=== PATIENT | female | born 1985 | race Caucasian/White ===

== ENCOUNTER 2019-09-25 16:30 | Emergency (ER) | payer SELFPAY ==
[~2019-09-25] VITALS: Ht 167.6 cm; Wt 61.2 kg
[2019-09-25 16:41] VITALS: BP 145/77
--- NOTE | 2019-09-25 16:53 | NUR ---
34 Y/O M C/C SORE THROAT X1 DAY. PT PRESENTS IN NO RESPIRATORY DISTRESS, VSS, EUPNIC, A/OX4. PER PT, TESTED POSITIVE TODAY. PT NKA. NO HX. NO RX. NO NVD. PT IN TENT
--- NOTE | 2019-09-25 16:54 | NUR ---
ER-PA AT TENT
--- NOTE | 2019-09-25 17:44 | NUR ---
COVID SWAB COMPLETE ; GIVEN TO LAB
[2019-09-25 17:59] VITALS: BP 135/72
--- NOTE | 2019-09-25 17:59 | NUR ---
Patient discharged with v/s stable. Written and verbal after care instructions given and explained. Patient alert, oriented and verbalized understanding of instructions. Ambulatory with steady gait. All questions addressed prior to discharge. ID band removed. Patient advised to follow up with PMD. Rx of ACETAMINOPHEN,PROMETHAZINE given. Patient educated on indication of medication including possible reaction and side effects. Opportunity to ask questions provided and answered.
--- NOTE | 2019-09-29 13:01 | NUR ---
RECEIVED FROM LAB POSITIVE COVID-19 RESULTS. COPY OF RESULTS GIVEN TO INFECTION CONTROL
== END 2019-09-25 17:59 | disposition home or self-care (01) ==
LOC: MED 16:30
DX: B34.9 Viral infection, unspecified (principal); Z20.828 Contact with and (suspected) exposure to other viral communicable diseases; R03.0 Elevated blood-pressure reading, without diagnosis of hypertension
CPT/HCPCS: 99283; U0003

== ENCOUNTER 2021-10-22 16:29 | Emergency (ER) | payer MEDICAID, OTHER ==
[~2021-10-22] VITALS: Ht 154.9 cm; Wt 66.2 kg
[2021-10-22 16:38] VITALS: BP 158/103
--- NOTE | 2021-10-22 16:41 | NUR ---
ambulated to bed 11
--- NOTE | 2021-10-22 16:54 | NUR ---
36 Y/O FEMALE BIB SELF C/O BILATERAL MID ABDOMINAL PAIN RADIATING TO THE PELVIS AND NAUSEA X1 HOUR, REPORTS TAKING TYLENOL WITH NO RELIEF. DENIES V/D OR URINARY SYMPTOMS. DENIES FEVER, RUIZ PMH: DENIES NKA
--- NOTE | 2021-10-22 17:00 | NUR ---
DR SEALS AT BEDSIDE FOR EVAL
[2021-10-22] MEDS ORDERED: NACL 0.9% 1,000 ML IV SCH (17:05)
[2021-10-22] MEDS ORDERED: KETOROLAC 30 MG/ML VIAL IVP ONE ×2 (17:05→22:20)
[2021-10-22] MEDS ORDERED: ONDANSETRON 4 MG/2 ML VIAL IVP ONE (17:05)
[2021-10-22 17:14] LABS: APPEARANCE,URINE CLEAR (CLEAR); BILIRUBIN,URINE NEGATIVE (NEGATIVE); BLOOD, URINE NEGATIVE (NEGATIVE); COLOR,URINE YELLOW (YELLOW); LEUKOCYTE ESTERASE ,URINE NEGATIVE (NEGATIVE); NITRITE, URINE NEGATIVE (NEGATIVE); PH,URINE 6.5 (5.0-9.0); UGLUCOSE NEGATIVE (NEGATIVE)
[2021-10-22 17:24] LABS: BASOPHILS % (AUTO) 0.1 % (0.0-2.0); EOSINOPHILS # (AUTO) 0.2 K/uL (0-0.4); EOSINOPHILS % (AUTO) 1.4 % (0.0-4.0); HEMATOCRIT 28.9 % (36-48); HEMOGLOBIN 8.9 g/dL (12.0-16.0); LYMPHOCYTES # (AUTO) 0.8 K/uL (2.5-16.5); LYMPHOCYTES % (AUTO) 5.5 % (20.5-51.1); MEAN CORPUSCULAR HEMOGLOBIN 20 pg (27-31); MEAN CORPUSCULAR HGB CONC 31 g/dL (33-37); MEAN CORPUSCULAR VOLUME 66.6 fL (80-94); MONOCYTES # (AUTO) 0.6 K/uL (0.8-1.0); MONOCYTES % (AUTO) 3.8 % (1.7-9.3); NEUTROPHILS % (AUTO) 89.2 % (42.2-75.2); PLATELET COUNT (AUTO) 371 K/uL (140-450); RED BLOOD CELL COUNT(AUTO) 4.35 MIL/uL (4.20-5.40); WHITE BLOOD COUNT (AUTO) 14.6 K/uL (4.8-10.8)
--- NOTE | 2021-10-22 17:38 | NUR ---
PT AMBULATED TO THE BATHROOM
[2021-10-22 17:41] LABS: ALBUMIN 3.9 g/dL (3.4-5.0); ANION GAP 13.9 (8-16); CARBON DIOXIDE 21.1 mmol/L (21-32); CREATININE 0.8 mg/dL (0.6-1.3); TOTAL BILIRUBIN 0.5 mg/dL (0.0-1.0)
[2021-10-22] MEDS ORDERED: MORPHINE SULFATE 4 MG/ML SYR IVP ONE (17:45)
[2021-10-22] MEDS ORDERED: IBUP-2213 PO (18:01)
[2021-10-22] MEDS ORDERED: FLUC150T PO (18:01)
[2021-10-22] MEDS ORDERED: ONDA8TAB87 PO (18:01)
[2021-10-22] MEDS ORDERED: ACET-8386 PO (18:01)
--- NOTE | 2021-10-22 18:44 | NUR ---
PT CONTINUED WITH PAIN, ERMD MADE AWARE
--- NOTE | 2021-10-22 19:33 | NUR ---
Pt report given to ISIAH RN. Transfer of care at this time.
--- NOTE | 2021-10-22 20:09 | NUR ---
pt taken to CT via w/c
[2021-10-22] MEDS ORDERED: NACL 0.9% 1,000 ML IV ONE (22:20)
--- NOTE | 2021-10-22 22:23 | NUR ---
PATIENT BP DROPPED 55/35 AND REPEAT OF 57/36 ER MD MADE AWARE. ORDER OF BOLUS AND TO MONITOR PATIENT BP.
[2021-10-22] MEDS ORDERED: PIPERACILLIN/TAZOBACTAM 3.375 GM in DEXTROSE 5% 50 ML IV ONE (22:25)
[2021-10-22] MEDS ORDERED: PIPERACILLIN/TAZOBACTAM 3.375 GM VIAL IV ONE (22:31)
[2021-10-22 22:39] VITALS: BP 129/91
--- NOTE | 2021-10-23 02:19 | NUR ---
Patient discharged. Written and verbal after care instructions given and explained Nausea, vomiting, & abdominal pain. Patient alert, oriented and verbalized understanding of instructions. Ambulatory with steady gait. All questions addressed prior to discharge. ID band removed. Patient advised to follow up with PMD. Rx of Zofran ODT, Ibuprofen, Diflucan, Hydrocodon-Acetaminophen 5-325 given. Patient educated on indication of medication including possible reaction and side effects. Opportunity to ask questions provided and answered.
--- NOTE | 2021-10-24 18:28 | NUR ---
LATE ENTRY. 0.9% NS DISCONTINED 10/23/21 AT 0219.
== END 2021-10-23 02:19 | disposition home or self-care (01) ==
LOC: MED 16:29
DX: N83.202 Unspecified ovarian cyst, left side (principal); N83.201 Unspecified ovarian cyst, right side
CPT/HCPCS: 36415; 74177; 76705; 76830; 80053; 81003; 81025; 83605; 83690; 85025; 87040; 96361; 96365; 96375; 96376; 99285; J1885; J2270; J2405; J2543; Q0092; Q9967; J7030

== ENCOUNTER 2021-10-25 22:48 | Emergency (ER) | payer MEDICAID ==
[~2021-10-25] VITALS: Ht 154.9 cm; Wt 66.2 kg
[~2021-10-25 22:48] MED LIST: ACET-8386 PO; FLUC150T PO; IBUP-2213 PO; ONDA8TAB87 PO
[2021-10-25 22:58] VITALS: BP 138/80
[2021-10-25] MEDS ORDERED: NACL 0.9% 2,000 ML IV ONE (23:20)
[2021-10-25] MEDS ORDERED: ONDANSETRON 4 MG/2 ML VIAL IVP ONE (23:20)
[2021-10-25] MEDS ORDERED: MORPHINE SULFATE 2 MG/ML SYR IVP ONE (23:20)
[2021-10-25] MEDS ORDERED: cefTRIAXone 1,000 MG VIAL ONE (23:42)
[2021-10-25 23:55] LABS: BASOPHILS # (AUTO) 0.1 K/uL (0.00-0.22); BASOPHILS % (AUTO) 0.6 % (0.0-2.0); EOSINOPHILS # (AUTO) 0.3 K/uL (0-0.4); EOSINOPHILS % (AUTO) 2.7 % (0.0-4.0); HEMATOCRIT 30.3 % (36-48); HEMOGLOBIN 9.3 g/dL (12.0-16.0); LYMPHOCYTES % (AUTO) 42.2 % (20.5-51.1); MEAN CORPUSCULAR HEMOGLOBIN 21 pg (27-31); MEAN CORPUSCULAR HGB CONC 31 g/dL (33-37); MONOCYTES # (AUTO) 0.7 K/uL (0.8-1.0); MONOCYTES % (AUTO) 7.4 % (1.7-9.3); NEUTROPHILS # (AUTO) 4.5 K/uL (1.8-7.7); NEUTROPHILS % (AUTO) 47.1 % (42.2-75.2); PLATELET COUNT (AUTO) 423 K/uL (140-450); RED BLOOD CELL COUNT(AUTO) 4.52 MIL/uL (4.20-5.40); RED CELL DISTRIBUTION WIDTH 17.9 % (11.6-13.7); WHITE BLOOD COUNT (AUTO) 9.5 K/uL (4.8-10.8)
[2021-10-26 00:44] LABS: ANION GAP 14.4 (8-16); CARBON DIOXIDE 25.1 mmol/L (21-32); CREATININE 0.7 mg/dL (0.6-1.3); POTASSIUM 3.5 mmol/L (3.5-5.1)
[2021-10-26 00:58] LABS: ALBUMIN 3.6 g/dL (3.4-5.0); TOTAL BILIRUBIN 0.2 mg/dL (0.0-1.0)
[2021-10-26 03:40] VITALS: BP 138/80
== END 2021-10-26 03:40 | disposition home or self-care (01) ==
LOC: MED 22:48
DX: N85.8 Other specified noninflammatory disorders of uterus (principal); D25.9 Leiomyoma of uterus, unspecified; N83.201 Unspecified ovarian cyst, right side; Z79.899 Other long term (current) drug therapy
CPT/HCPCS: 36415; 76830; 80053; 81002; 83605; 83690; 84702; 85025; 87040; 96365; 96375; 99284; J0696; J2270; J2405; J7030; Q0092